=== PATIENT | female | born 1990 | race Two or more races ===

== ENCOUNTER 2024-01-12 21:27 | Emergency (ER) | payer OTHER ==
[~2024-01-12] VITALS: Ht 162.6 cm; Wt 61.2 kg
[2024-01-12] MEDS ORDERED: TRAMADOL HCL 50 MG TABLET PO SCH (23:15)
[2024-01-13] MEDS ORDERED: KETO10TA2 PO (01:26)
== END 2024-01-13 01:33 ==
LOC: ER 21:28
DX: M54.2 Cervicalgia (principal); R51.9 Headache, unspecified; M25.512 Pain in left shoulder; V43.62XA Car passenger injured in collision with other type car in traffic accident, initial encounter; Y93.89 Activity, other specified; Y92.413 State road as the place of occurrence of the external cause